=== PATIENT | female | born 2000 | race Caucasian/White ===

== ENCOUNTER 2021-05-28 08:33 | Emergency (ER) | payer SELFPAY ==
[2021-05-28 08:34] VITALS: BP 130/77; PULSE 109; RESP 16; TEMP 36.2; O2SAT 97; BMI 25.7
--- NOTE | 2021-05-28 08:58 | EX.ED.DYSGE1 ---
HPI History of Present Illness Chief Complaint: Allergic Reaction Detail of Chief Complaint: Allergic reaction that started yesterday Informant: patient Narrative Narrative: Patient presents with an allergic reaction that she states are yesterday. Patient complains of hive-like rash with itching. No new soaps or detergents. No new medications. No recent illness. The only thing she can think of is that she had some product put in her hair after a haircut 2 days ago and she did not wash it out right away. Patient denies lip or tongue swelling or difficulty breathing. She states she has Benadryl all day yesterday. Prior similar symptoms: No PFSH [facility] Medical History (Updated 05/28/21 @ 11:[address] Adrian Magdaleno, DO) Anxiety Depression Home Medications prednisone 20 mg PO BID #10 tab 05/28/21 [Rx Last Taken Unknown] venlafaxine [Effexor XR] 75 mg PO DAILY 05/28/21 [History Last Taken Unknown] Allergy/AdvReac Type Severity Reaction Status Date / Time No Known Allergies Allergy Verified 05/28/21 08:36 Surgical History no surgical history Social History Smoking Status: Never smoker ROS ROS ED Constitutional Constitutional ED: Reports systems reviewed and no addt'l complaints, except as documented; Denies body ache(s), change in weight or chills Eyes Eyes: Denies acute decrease in peripheral vision, change in vision, double vision or loss of vision ENT ENT ED: Reports none; Denies ear pain, lip swelling, loss taste/smell, neck pain, otalgia or sore throat Cardiovascular Cardiovascular: Reports none; Denies abdominal pain, chest pain with activity, leg edema, lightheadedness, palpitations, rapid heart rate or syncope Respiratory/Chest Respiratory/Chest: Reports none; Denies change in mental status, dry cough, dyspnea, hemoptysis, shortness of breath at rest or shortness of breath with exertion Gastrointestinal Gastrointestinal: Reports none; Denies abdominal pain, change in stool character, diarrhea, hematemesis, hematochezia, melena, rectal bleeding or vomiting Genitourinary Genitourinary ED: Reports none; Denies abdominal discomfort, anuria, dysuria, genital pain or polyuria Musculoskeletal Musculoskeletal: Reports none; Denies arthralgias, back pain, difficulty walking, extremity pain, muscle weakness or myalgias Integumentary Reports none, rash and other Details: Itching ; Denies abscess Neurologic Neurologic: Reports none; Denies abnormal gait, confusion, focal weakness, frequent falls, headache(s), loss of vision, numbness, paresthesias, radicular pain, vertigo or weakness Psychiatric Psychiatric: Reports systems reviewed and no addt'l complaints, except as documented and none; Denies behavioral changes, confusion, difficulty concentrating, hallucinations, suicidal ideation, tactile hallucinations or visual hallucinations Endocrine Endocrinology: Denies none, cold intolerance, excessive sweating, fatigue or heat intolerance Hematologic/Lymphatic Hematologic/Lymphatic: Reports none; Denies anemia, easy bleeding or easy bruising Allergic/Immunologic Allergic/Immunologic ED: Denies as per HPI, none, lip swelling, mouth swelling, throat swelling, tongue swelling or hives EXAM Physical Exam Const Vital Signs: 05/28/21 08:34 Temperature 97.2 F L Temperature Source Temporal Pulse Rate 109 H Respiratory Rate 16 Blood Pressure 130/77 H Blood Pressure Mean 94 Pulse Ox 97 Oxygen Delivery Method Room Air Positive well nourished and well developed General Appearance ED: well developed and NAD HEENT Reports TM's clear and moist mucous membranes normocephalic and atraumatic; Negative for trauma or tenderness Tympanic Membrane ED: Yes TM's clear Eyes PERRL and EOMs intact bilaterally General Eye ED: Negative for pale conjunctiva or scleral icterus Neck no lymphadenopathy, supple and no JVD General: Negative for tenderness Chest Wall inspection of chest normal and palpation of chest normal Chest: Negative for tenderness Resp normal respiratory effort and clear to auscultation bilaterally Effort and Inspection: Negative for respiratory distress or pain with movement Auscultation: Negative for rhonchi, wheezes or diminished lung sounds Cardio regular rate, regular rhythm, S1 normal heart sound, S2 normal heart sound and no murmurs Peripheral Pulses: pulses 2+ throughout GI normal to inspection, nondistended, normoactive bowel sounds, soft to palpation, non-tender, non-distended and no masses Back/Spine no CVA tenderness and no thoracic nor lumbar tenderness Extremity normal to inspection General Extremety ED: Negative for edema General Extremity: Negative for edema Neuro oriented x3, CN's II-XII intact bilaterally, no sensory deficits noted and gait normal Sensorium / Orientation: awake, alert, oriented to person, oriented to place and oriented to time Motor Exam: strength 5/5 throughout and strength abnormal Psych mental status grossly normal Skin no wounds Skin Narrative: Patient has erythema involving her face as well as upper back and lower back with some raised areas consistent with hives. Areas are pruritic. Patient also has involvement of her extremities. MDM MDM MDM Narrative Medical decision making narrative: Patient received prednisone 40 mg p.o. and Benadryl p.o. She was observed in the department and her erythema and urticaria did seem to improve. At this point etiology of her urticaria and allergic reaction is unclear. Patient will be treated with prednisone and she is advised to continue with Benadryl for the itching. Patient to return if lip or tongue swelling or trouble breathing or conditions worsen anyway. Discharge Plan Triage Chief Complaint: Allergic Reaction ED Provider: Adrian Magdaleno Dx/Rx/DC Orders Clinical Impression: Allergic reaction, Urticaria Prescriptions: New prednisone 20 mg tablet 20 mg PO BID Qty: 10 RF: 0 No Action venlafaxine [Effexor XR] 75 mg Capsule,Extended Release 24hr 75 mg PO DAILY RF: 0 Referrals: Delaney Ramirez [Other] Disposition Disposition: Home, Self Care
[2021-05-28] MEDS: predniSONE 20 MG Tablet 40 MG PO (09:06)
[2021-05-28] MEDS: DiphenhydrAMINE 25 MG Capsule PO (09:07)
[2021-05-28 11:29] VITALS: BP 101/58; PULSE 86; RESP 17; O2SAT 100
== END 2021-05-28 11:33 | disposition home or self-care (01) ==
PROVIDERS: Emergency Provider Emergency Medicine
DX: L50.0 Allergic urticaria (principal); F32.A Depression, unspecified; F41.9 Anxiety disorder, unspecified; Z79.899 Other long term (current) drug therapy
CPT/HCPCS: 99283